=== PATIENT | male | born 1990 | race Caucasian/White ===

== ENCOUNTER 2024-06-22 16:11 | Inpatient (IN) | payer OTHER ==
[2024-06-22] MEDS ORDERED: Ipratropium/Albuterol 3 ML NEB ONE (16:47)
[2024-06-22] MEDS ORDERED: methylPREDNISolone Sod Succ/PF 125 MG/2 ML VIAL ONE (16:48)
[2024-06-22] MEDS ORDERED: Albuterol 2.5 MG (0.5 mL) NEB ONE (16:54)
[2024-06-22] MEDS ORDERED: Ipratropium Bromide 2.5 ml Neb ONE ×2 (16:54→16:57)
[2024-06-22] MEDS ORDERED: Acetaminophen 500 MG TAB ONE (16:54)
[2024-06-22 17:05] LABS: #Basophils 0.06 10x3/uL (0.0-0.2); %Basophils 0.6 % (0.0-1.0); %Eosinophils 2.4 % (0.0-10.0); %Lymphocytes 20.8 % (21.0-51.0); %Monocytes 8.3 % (0.0-10.0); %Neutrophils 67.5 % (42.0-75.0); Hematocrit 47.7 % (42.0-52.0); Hemoglobin 15.7 g/dL (14.0-18.0); Mean Corpuscular HGB CONC 32.9 g/dL (32.0-36.0); Mean Corpuscular Hemoglobin 31.3 pg (27.0-31.0); Mean Platelet Volume 9.3 fL (7.4-10.4); Platelet Count 222 10x3/uL (130-400); RBC Distribution Width 13.3 % (11.5-14.5); Red Blood Cell (RBC) Count 5.02 mill/uL (4.70-6.10)
[2024-06-22 17:24] LABS: ALT (SGPT) 32 U/L (8-55); AST (SGOT) 24 U/L (5-34); Albumin 3.4 g/dL (3.5-5.0); Alkaline Phosphatase 149 U/L (40-110); Anion Gap 11 mmol/L (10-20); BUN (Urea Nitrogen) 14 mg/dL (8.9-20.6); Bilirubin, Total 0.3 mg/dL (0.2-1.2); Calc. Creatinine Clearance 0 mL/min (70-130); Calcium 9.3 mg/dL (7.8-10.44); Carbon Dioxide 32 mmol/L (22-29); Chloride 102 mmol/L (98-107); Estimated GFR 101; Globulin 3.8 g/dL (2.4-3.5); Glucose 149 mg/dL (70-105); Potassium 4.4 mmol/L (3.5-5.1); Protein, Total 7.2 g/dL (6.0-8.3); Sodium 141 mmol/L (136-145)
[2024-06-22 17:30] LABS: Troponin I Less than 0.010 ng/mL (< 0.028)
[2024-06-22 17:47] LABS: Actual Bicarbonate (HCO3v) 35.5 mEq/L (22-28); Analyzer IN Cardio ER; Base Excess 6.5 mEq/L (-2.0 to +3.0); Calcium, Ionized (venous) 1.16 mmol/L (1.16-1.32); Chloride (VBG) 99 mmol/L (98-106); Hematocrit-VBG 49 % (42.0-52.0); Hemoglobin (Hb) 16.6 g/dL (13.2-17.3); Potassium (VBG) 4.08 mmol/L (3.70-5.30); Sodium 141 mmol/L (133-146)
[2024-06-22] MEDS ORDERED: Ondansetron PF 4 MG/2 ML Vial IVP PRN (20:56)
[2024-06-22] MEDS ORDERED: Lisinopril 20 MG TAB ONE (22:11)
[2024-06-22] MEDS: Lisinopril 20 MG TAB PO SCH (22:15)
[2024-06-22 22:24] LABS: Actual Bicarbonate (HCO3v) 30.8 mEq/L (22-28); Base Excess 2.2 mEq/L (-2.0 to +3.0); Calcium, Ionized (venous) 1.16 mmol/L (1.16-1.32); Chloride (VBG) 97 mmol/L (98-106); Hematocrit-VBG 50 % (42.0-52.0); Potassium (VBG) 4.43 mmol/L (3.70-5.30); Sodium 140 mmol/L (133-146); pH (venous) 7.302 (7.32-7.43)
[2024-06-22] MEDS ORDERED: Dextrose 5% in Water 1,000 ML IV PRN (23:26)
[2024-06-22] MEDS ORDERED: Dextrose 50% Abboject 50 ML SYRINGE SLOW IVP PRN (23:26)
[2024-06-22] MEDS ORDERED: Glucagon 1 MG/ML KIT IM PRN (23:26)
[2024-06-22] MEDS ORDERED: Insulin Lispro 100 UNIT/ML 10 ML VIAL SC PRN (23:26)
[2024-06-23 01:52] VITALS: BMI 53.7
[2024-06-23] MEDS: Ipratropium/Albuterol 3 ML NEB NEB SCH ×2 (02:04→02:28)
[2024-06-23 03:05] LABS: Amphetamine Not Detected (NotDetected); Barbiturates Screen Not Detected (NotDetected); Benzodiazepine Screen Not Detected (NotDetected); Cocaine Metabolite Screen Not Detected (NotDetected); Methadone Not Detected (NotDetected); Methamphetamine Not Detected (NotDetected); Opiate Screen Not Detected (NotDetected); Oxycodone Screen Not Detected (NotDetected); Phencyclidine (PCP) Not Detected (NotDetected); THC/Cannabinoid Screen Not Detected (NotDetected); Tricyclic Screen Not Detected (NotDetected)
[2024-06-23 05:21] LABS: #Basophils Less than 0.03 10x3/uL (0.0-0.2); #Eosinophils Less than 0.03 10x3/uL (0.0-0.7); %Basophils 0.2 % (0.0-1.0); %Lymphocytes 5.5 % (21.0-51.0); %Monocytes 1.1 % (0.0-10.0); %Neutrophils 92.6 % (42.0-75.0); Hematocrit 48.3 % (42.0-52.0); Hemoglobin 15.6 g/dL (14.0-18.0); Mean Corpuscular HGB CONC 32.3 g/dL (32.0-36.0); Mean Corpuscular Hemoglobin 31.3 pg (27.0-31.0); Mean Corpuscular Volume 96.8 fL (78.0-98.0); Mean Platelet Volume 9.9 fL (7.4-10.4); Platelet Count 226 10x3/uL (130-400); RBC Distribution Width 13.2 % (11.5-14.5); Red Blood Cell (RBC) Count 4.99 mill/uL (4.70-6.10)
[2024-06-23 05:24] LABS: Hemoglobin A1c 7.5 % (4.0-6.0)
[2024-06-23 05:42] LABS: Anion Gap 15 mmol/L (10-20); BUN (Urea Nitrogen) 20 mg/dL (8.9-20.6); Calc. Creatinine Clearance 225 mL/min (70-130); Calcium 9.8 mg/dL (7.8-10.44); Carbon Dioxide 28 mmol/L (22-29); Chloride 99 mmol/L (98-107); Estimated GFR 93; Glucose 324 mg/dL (70-105); Magnesium 1.9 mg/dL (1.6-2.6); Potassium 5.1 mmol/L (3.5-5.1); Sodium 137 mmol/L (136-145)
[2024-06-23] MEDS: Insulin Lispro 100 UNIT/ML 10 ML VIAL SC PRN (06:31)
[2024-06-23] MEDS: Famotidine 20 MG TAB PO SCH (09:12)
[2024-06-23] MEDS: Enoxaparin 40 MG (0.4 mL) SYRINGE SC SCH (09:12)
[2024-06-23] MEDS: Lisinopril 20 MG TAB PO SCH (09:12)
[2024-06-23] MEDS: Furosemide 20 MG TAB PO SCH (16:10)
[2024-06-24] MEDS: Acetaminophen 325 MG TAB PO PRN (04:29)
[2024-06-24] MEDS: Ipratropium/Albuterol 3 ML NEB EZPAP PRN (04:43)
[2024-06-24] MEDS: Furosemide 20 MG TAB PO SCH (08:58)
[2024-06-24 09:19] LABS: #Basophils 0.08 10x3/uL (0.0-0.2); %Basophils 0.6 % (0.0-1.0); %Eosinophils 0.6 % (0.0-10.0); %Monocytes 9.2 % (0.0-10.0); Hemoglobin 15.3 g/dL (14.0-18.0); Mean Corpuscular HGB CONC 31.2 g/dL (32.0-36.0); Mean Corpuscular Volume 99.2 fL (78.0-98.0); Mean Platelet Volume 9.7 fL (7.4-10.4); Platelet Count 229 10x3/uL (130-400); RBC Distribution Width 13.8 % (11.5-14.5); Red Blood Cell (RBC) Count 4.94 mill/uL (4.70-6.10)
[2024-06-24 09:36] LABS: Anion Gap 12 mmol/L (10-20); BUN (Urea Nitrogen) 16 mg/dL (8.9-20.6); Calc. Creatinine Clearance 325 mL/min (70-130); Calcium 8.9 mg/dL (7.8-10.44); Carbon Dioxide 33 mmol/L (22-29); Chloride 100 mmol/L (98-107); Estimated GFR 121; Glucose 204 mg/dL (70-105); Potassium 4.3 mmol/L (3.5-5.1); Sodium 141 mmol/L (136-145)
[2024-06-24 11:50] VITALS: BP 139/87; TEMP 98
== END 2024-06-24 13:26 | disposition home or self-care (01) | DRG 189 ==
LOC: ERS 16:11 → ERHOLD 18:30 → OBS 06-23 01:08
PROVIDERS: ADMIT Internal Medicine; ATTEND Family Medicine
DX: J96.21 Acute and chronic respiratory failure with hypoxia (principal); I50.32 Chronic diastolic (congestive) heart failure; E66.2 Morbid (severe) obesity with alveolar hypoventilation; Z68.43 Body mass index [BMI] 50.0-59.9, adult; I10 Essential (primary) hypertension; J44.9 Chronic obstructive pulmonary disease, unspecified; E11.9 Type 2 diabetes mellitus without complications; Z79.899 Other long term (current) drug therapy; Z99.89 Dependence on other enabling machines and devices
CPT/HCPCS: 36415; 36416; 71045; 80048; 80053; 80306; 82805; 83036; 83735; 83880; 84484; 85025; 93005; 94640; 94660; 96374; J1650; J1815; J2919; J7611; J7620; J7644